=== PATIENT | male | born 2000 | race Two or more races ===

== ENCOUNTER 2021-09-21 11:53 | Inpatient (IN) | payer MEDICAID ==
[~2021-09-21] VITALS: Ht 172.7 cm; Wt 53.5 kg
[2021-09-21] MEDS ORDERED: MORPHINE SULFATE 10 MG/ML INJ 1ML SDV IV ONE (12:15)
[2021-09-21] MEDS ORDERED: SODIUM CHLORIDE 0.9% 1,000 ML IVB ONE (12:15)
[2021-09-21] MEDS ORDERED: LORazepam 2MG/ML-1ML VIAL IV ONE (12:15)
[2021-09-21] MEDS ORDERED: ONDANSETRON HCL 4 MG/2 ML VIAL IV ONE (12:15)
[2021-09-21] MEDS: PROMETHAZINE HCL 25 MG/ML 1ML IV PRN (12:42)
[2021-09-21] MEDS ORDERED: MORPHINE SULFATE 4 MG/ML SYR/VIAL ONE (13:06)
[2021-09-21] MEDS ORDERED: MORPHINE SULFATE INJ 2 MG/ml SYRG ONE (13:07)
[2021-09-21 13:25] LABS: Basophils # (auto) 0 10 ^3/uL (0-0.2); Basophils % (auto) 0.2 % (0.0-2.0); Eosinophils # (auto) 0 10 ^3/uL (0-0.8); Eosinophils % (auto) 0.2 % (0.0-7.0); Hematocrit 49.9 % (41.0-53.0); Hemoglobin 16.3 g/dL (13.5-17.5); Lymphocytes # (auto) 1.6 10 ^3/uL (0.4-5.4); Lymphocytes % (auto) 12.1 % (10.0-50.0); Mean Corpuscular Hemoglobin 29.2 pg (28.0-32.0); Mean Corpuscular Hgb Conc. 32.7 g/dL (32.0-36.0); Mean Corpuscular Volume 89.4 fL (80.0-100.0); Monocytes # (auto) 0.8 10 ^3/uL (0-1.3); Monocytes % (auto) 6.1 % (0.0-12.0); Neutrophils # (auto) 10.5 10 ^3/uL (1.6-8.6); Neutrophils % (auto) 81.4 % (37.0-80.0); Nucleated Red Blood Cells % 0.1 %; Red Blood Cells 5.58 10^6/uL (4.5-5.90); Red Cell Distribution Width 13.1 % (11.8-14.3); White Blood Cell 12.8 10^3/uL (4.4-10.8)
[2021-09-21 13:44] LABS: Lactic Acid w/Reflex 5.3 mmol/L (0.4-2.0)
[2021-09-21 13:50] LABS: Total Protein 8.4 g/dL (6.4-8.2)
[2021-09-21 14:06] LABS: BUN/Creatinine Ratio 6.7
[2021-09-21 14:07] LABS: Albumin 4.3 g/dL (3.4-5.0); Bilirubin, Total 1.2 mg/dL (0.2-1.0); Calcium 9.5 mg/dL (8.5-10.1)
[2021-09-21 14:10] LABS: Potassium 2.9 mmol/L (3.5-5.1)
[2021-09-21] MEDS ORDERED: SODIUM CHLORIDE 0.9% 1,650 ML IV ONE (14:15)
[2021-09-21] MEDS ORDERED: levoFLOXacin 500MG 100 ML IV ONE (14:15)
[2021-09-21] MEDS ORDERED: PIPERACILLIN-TAZOB 3.375GM 100 ML IV ONE (14:15)
[2021-09-21] MEDS ORDERED: POTASSIUM CHL 20 Meq TABLET PO ONE (14:30)
[2021-09-21] MEDS ORDERED: HYDROmorphone HCL 2 MG/ML VL/or syr IV ONE (14:45)
[2021-09-21 15:01] LABS: Urine Bacteria NONE SEEN /hpf (None Seen); Urine Blood Negative /uL (Negative); Urine Mucus FEW (None Seen); Urine Specific Gravity 1.021 (1.001-1.035); Urine WBC 9 /hpf (0 - 3)
[2021-09-21] MEDS ORDERED: PROMETHAZINE HCL 25 MG/ML 1ML IM ONE (16:00)
[2021-09-21] MEDS: POTASSIUM CHL 20MEQ/100ML 100 ML IV SCH ×2 (16:08→17:47)
[2021-09-21] MEDS ORDERED: DOCUSATE SOD 100 MG CAP PO PRN (20:00)
[2021-09-21] MEDS ORDERED: DEXTROSE (50%) 50ML SYRG IV PRN (20:00)
[2021-09-21] MEDS ORDERED: TEMAZEPAM 15 MG CAP PO PRN (20:00)
[2021-09-21] MEDS ORDERED: LORazepam 0.5 MG TAB PO PRN (20:00)
[2021-09-21] MEDS ORDERED: ACETAMINOPHEN 325 MG TAB PO PRN (20:00)
[2021-09-21] MEDS: SODIUM CHLORIDE 0.9% 1,000 ML IV SCH (21:13)
[2021-09-21] MEDS: PIPERACILLIN-TAZOB 3.375GM 100 ML IV SCH (22:36)
[2021-09-22] MEDS: ACCU-CHEK COMFORT CURVE STRIP VI SCH ×4 (01:20→16:53)
[2021-09-22] MEDS: InsuLIN REG 1unit/0.01ml Soln (100units/ml) SC SCH ×4 (01:20→18:00)
[2021-09-22] MEDS: PROMETHAZINE HCL 25 MG/ML 1ML IV PRN ×2 (01:39→09:32)
[2021-09-22] MEDS: HYDROcodone-ACET 5/325MG TAB PO PRN ×3 (01:46→19:00)
[2021-09-22 04:48] VITALS: BP 108/63
[2021-09-22 05:28] VITALS: BP 108/63
[2021-09-22] MEDS: PIPERACILLIN-TAZOB 3.375GM 100 ML IV SCH ×3 (06:39→21:56)
[2021-09-22] MEDS ORDERED: CLON0.5T PO (06:45)
[2021-09-22] MEDS ORDERED: LEVE500T32 PO (06:45)
[2021-09-22 09:00] VITALS: BP 132/64
[2021-09-22 09:05] LABS: Basophils # (auto) 0 10 ^3/uL (0-0.2); Basophils % (auto) 0.5 % (0.0-2.0); Eosinophils # (auto) 0.1 10 ^3/uL (0-0.8); Eosinophils % (auto) 1.2 % (0.0-7.0); Hematocrit 41.9 % (41.0-53.0); Lymphocytes # (auto) 3.1 10 ^3/uL (0.4-5.4); Lymphocytes % (auto) 39.8 % (10.0-50.0); Mean Corpuscular Hemoglobin 29.5 pg (28.0-32.0); Mean Corpuscular Hgb Conc. 33.5 g/dL (32.0-36.0); Mean Corpuscular Volume 88.1 fL (80.0-100.0); Monocytes # (auto) 0.7 10 ^3/uL (0-1.3); Monocytes % (auto) 8.3 % (0.0-12.0); Neutrophils # (auto) 3.9 10 ^3/uL (1.6-8.6); Neutrophils % (auto) 50.2 % (37.0-80.0); Nucleated Red Blood Cells % 0.1 %; Red Blood Cells 4.76 10^6/uL (4.5-5.90); Red Cell Distribution Width 13.5 % (11.8-14.3); White Blood Cell 7.8 10^3/uL (4.4-10.8)
[2021-09-22 09:23] LABS: Calcium 8.5 mg/dL (8.5-10.1); Potassium 3.6 mmol/L (3.5-5.1)
[2021-09-22 09:26] LABS: BUN/Creatinine Ratio 6.5
[2021-09-22] MEDS: PANTOPRAZOLE 40 MG/10 ML VIAL INJ IV SCH (11:52)
[2021-09-22] MEDS: MORPHINE SULFATE INJ 2 MG/ml SYRG IV PRN ×3 (12:03→23:07)
[2021-09-22 13:00] VITALS: BP 139/80
[2021-09-22] MEDS: SODIUM CHLORIDE 0.9% 1,000 ML IV SCH (13:37)
[2021-09-22 17:01] VITALS: BP 112/62
[2021-09-22] MEDS: ONDANSETRON HCL 4 MG/2 ML VIAL IV PRN (19:00)
[2021-09-23] MEDS: ACCU-CHEK COMFORT CURVE STRIP VI SCH ×3 (00:16→12:00)
[2021-09-23 00:56] VITALS: BP 109/59
[2021-09-23] MEDS: SODIUM CHLORIDE 0.9% 1,000 ML IV SCH ×2 (05:20→22:00)
[2021-09-23 06:00] VITALS: BP 100/58
[2021-09-23] MEDS: PIPERACILLIN-TAZOB 3.375GM 100 ML IV SCH ×3 (06:29→22:25)
[2021-09-23] MEDS: InsuLIN REG 1unit/0.01ml Soln (100units/ml) SC SCH ×3 (06:30→12:00)
[2021-09-23] MEDS: PANTOPRAZOLE 40 MG/10 ML VIAL INJ IV SCH ×3 (08:55→22:25)
[2021-09-23 09:00] VITALS: BP 102/63
[2021-09-23] MEDS: MORPHINE SULFATE INJ 2 MG/ml SYRG IV PRN ×3 (09:50→20:30)
[2021-09-23] MEDS: SUCRALFATE 1 GM/10 ML ORAL SUSP PO SCH ×3 (10:30→22:25)
[2021-09-23 10:42] LABS: INR 1.25 (0.9-1.15)
[2021-09-23 12:38] LABS: Basophils # (auto) 0 10 ^3/uL (0-0.2); Basophils % (auto) 0.6 % (0.0-2.0); Eosinophils # (auto) 0.1 10 ^3/uL (0-0.8); Hematocrit 43.1 % (41.0-53.0); Hemoglobin 14.3 g/dL (13.5-17.5); Lymphocytes # (auto) 2.2 10 ^3/uL (0.4-5.4); Lymphocytes % (auto) 32.1 % (10.0-50.0); Mean Corpuscular Hemoglobin 29.9 pg (28.0-32.0); Mean Corpuscular Hgb Conc. 33.2 g/dL (32.0-36.0); Mean Corpuscular Volume 89.9 fL (80.0-100.0); Monocytes # (auto) 0.5 10 ^3/uL (0-1.3); Monocytes % (auto) 7.1 % (0.0-12.0); Neutrophils # (auto) 4.1 10 ^3/uL (1.6-8.6); Neutrophils % (auto) 59.2 % (37.0-80.0); Red Blood Cells 4.79 10^6/uL (4.5-5.90); Red Cell Distribution Width 13.7 % (11.8-14.3); White Blood Cell 6.9 10^3/uL (4.4-10.8)
[2021-09-23 12:58] LABS: Calcium 8.6 mg/dL (8.5-10.1); Potassium 3.3 mmol/L (3.5-5.1)
[2021-09-23 13:01] LABS: BUN/Creatinine Ratio 5.4
[2021-09-23] MEDS: ONDANSETRON HCL 4 MG/2 ML VIAL IV PRN (14:55)
[2021-09-23 17:00] VITALS: BP 110/51
[2021-09-23 22:00] VITALS: BP 109/63
[2021-09-23] MEDS: levETIRAcetam 500 MG TAB PO SCH (22:25)
[2021-09-24 05:00] VITALS: BP 86/41
[2021-09-24] MEDS: PIPERACILLIN-TAZOB 3.375GM 100 ML IV SCH ×2 (06:26→14:14)
[2021-09-24] MEDS: SUCRALFATE 1 GM/10 ML ORAL SUSP PO SCH ×3 (06:27→17:47)
[2021-09-24] MEDS ORDERED: SODIUM CHLORIDE LOCK 10 ML ONE (08:52)
[2021-09-24] MEDS ORDERED: diphenhdrAMINE HCL 50 MG/1 ML VL ONE (08:52)
[2021-09-24] MEDS ORDERED: LIDOCAINE VISCOUS 2% 15ML UD ONE (08:52)
[2021-09-24] MEDS ORDERED: FLUMAZENIL 0.1 MG/ML INJ 10ML MDV IV ONE (08:55)
[2021-09-24] MEDS ORDERED: EPINEPHrine HCL 1 MG/10 ML SYRG ONE (08:55)
[2021-09-24] MEDS ORDERED: NALOXONE HCL 0.4 MG/ML VIAL ONE (08:55)
[2021-09-24] MEDS: fentaNYL CITRATE 100 MCG/2 ML VL ONE ×2 (09:01→09:04)
[2021-09-24] MEDS: MIDAZOLAM HCL 5 MG/ML-1ML VIAL ONE ×2 (09:01→09:04)
[2021-09-24 09:52] VITALS: BP 91/46
[2021-09-24] MEDS: PANTOPRAZOLE 40 MG/10 ML VIAL INJ IV SCH (09:52)
[2021-09-24] MEDS: levETIRAcetam 500 MG TAB PO SCH (09:52)
[2021-09-24 12:54] VITALS: BP 109/60
[2021-09-24] MEDS: HYDROcodone-ACET 5/325MG TAB PO PRN (13:15)
[2021-09-24] MEDS: MORPHINE SULFATE INJ 2 MG/ml SYRG IV PRN (14:21)
[2021-09-24] MEDS: SODIUM CHLORIDE 0.9% 1,000 ML IV SCH (14:40)
[2021-09-24] MEDS ORDERED: PANT40T PO (16:06)
[2021-09-24] MEDS ORDERED: SUCR1SUS10 PO (16:06)
[2021-09-24 16:33] VITALS: BP 112/64
== END 2021-09-24 18:57 | disposition home or self-care (01) | DRG 245 ==
LOC: ER 11:53 → OVERFLOW 20:00 → WEST WING 09-22 03:34
PROVIDERS: ADMIT Hospitalist; ATTEND Internal Medicine
PROC: 0DB68ZX Excision of Stomach, Via Natural or Artificial Opening Endoscopic, Diagnostic (ICD-10-PCS; principal; 2021-09-24 08:56)
DX: K50.90 Crohn's disease, unspecified, without complications (principal); E87.6 Hypokalemia; K29.70 Gastritis, unspecified, without bleeding; K52.9 Noninfective gastroenteritis and colitis, unspecified; G40.909 Epilepsy, unspecified, not intractable, without status epilepticus; R74.8 Abnormal levels of other serum enzymes; K64.9 Unspecified hemorrhoids; K57.10 Diverticulosis of small intestine without perforation or abscess without bleeding; Z20.822 Contact with and (suspected) exposure to COVID-19
CPT/HCPCS: 36415; 43239; 74176; 80048; 80053; 81001; 82150; 82270; 82962; 83036; 83605; 83690; 83735; 84484; 85025; 85610; 87040; 87081; 96361; 96374; 96375; 99291; C9113; G0378; J1956; J2250; J2405; J2543; J3480